=== PATIENT | female | born 1955 | race Caucasian/White ===

== ENCOUNTER 2017-02-09 11:54 | Emergency (ER) | payer MEDICAID ==
[~2017-02-09] VITALS: Ht 165.1 cm; Wt 81.2 kg
[~2017-02-09 11:54] MED LIST: ALPR0.5T; FLUO10CA66; GLIP-95; LEVO25TA59; LISI20TA; METF500T4; NAPR-260; SIMV40TA3; VICES
[2017-02-09 12:00] VITALS: Ht 165.1 cm; Wt 81.2 kg
[2017-02-09] MEDS ORDERED: METOCLOPRAMIDE 10 MG INJ IV STA (13:06)
[2017-02-09] MEDS ORDERED: KETOROLAC 30 MG INJ IV STA (13:06)
[2017-02-09] MEDS ORDERED: DIPHENHYDRAMINE 50 MG INJ IV STA (13:06)
[2017-02-09] MEDS ORDERED: SOD CHLORIDE 0.9% 1,000 ML IV STA (13:06)
[2017-02-09 14:38] LABS: ADD SCAN DIFF NO
[2017-02-09] MEDS ORDERED: HYDR-906 PO (14:43)
[2017-02-09 14:58] LABS: INR 0.95; PARTIAL THROMBOPLASTIN TIME 22.8 Sec (25.0-35.0); PROTIME 12.7 Sec (12.2-14.2)
[2017-02-09] MEDS ORDERED: HYDROCODONE/APAP (5/325) TAB PO ONE (15:00)
[2017-02-09 15:07] LABS: CALCIUM 9.8 mg/dl (8.4-10.2); CREATININE 0.74 mg/dl (0.44-1.00); POTASSIUM 3.5 mmol/L (3.5-5.1)
[2017-02-09 15:17] LABS: BASOPHIL # 0.1 10^3/ul (0.0-0.1); BASOPHILS % 1.2 % (0.0-2.0); EOSINOPHILS # 0.2 10^3/ul (0.0-0.5); EOSINOPHILS % 3.1 % (0.0-7.0); HEMATOCRIT 37.4 % (37.0-47.0); LYMPHOCYTES # 1.8 10^3/ul (0.8-2.9); LYMPHOCYTES % 23.4 % (15.0-51.0); MEAN CORPUSCULAR HEMOGLOBIN 29.2 pg (29.0-33.0); MEAN CORPUSCULAR HGB CONC 34.8 g/dl (32.0-37.0); MEAN PLATELET VOLUME 12.4 fl (7.4-10.4); MONOCYTE # 0.4 10^3/ul (0.3-0.9); MONOCYTES % 4.7 % (0.0-11.0); NEUTROPHIL # 5.2 10^3/ul (1.6-7.5); NEUTROPHILS % 67.1 % (39.0-77.0); PLATELET COUNT 159 10^3/UL (140-415); RED BLOOD COUNT 4.45 10^6/ul (4.20-5.40); RED CELL DISTRIBUTION WIDTH 13.1 % (11.5-14.5); WHITE BLOOD COUNT 7.7 10^3/ul (4.8-10.8)
--- NOTE | 2017-02-09 15:34 | ERD ---
ER Documentation Chief Complaint Date/Time DATE: 02/09/17 TIME: 15:30 Chief Complaint headache with nausea x 3 days h/o migraine HPI This is a 61-year-old female presents to the ER with a headache that is located all over her head over the last 3 days. Headache is throbbing in quality and is intermittent. Patient has not taken anything for the pain. Patient also admits to weakness. She admits to some nausea however denies vomiting. She also admits to diarrhea. Patient denies any head trauma. She does have a past medical history of migraine headaches. Patient denies any recent cough or cold symptoms. She denies any confusion or loss of consciousness. She denies any neck pain or neck stiffness. She denies any fevers or chills ROS 12 point review of systems was done, all negative except per HPI. Medications Home Meds Active Scripts Hydrocodone/Acetaminophen ([place] 5-325 Tablet) 1 Each Tablet, 1 TAB PO Q6H Y for PAIN, #10 TAB Prov:CHE GALVEZ 02/09/17 Reported Medications Alprazolam* (Xanax*) 0.5 Mg Tab 02/04/11 Naproxen* (Naprosyn*) 500 Mg Tablet 02/04/11 Acetaminophen/Hydrocodone (Vicodin Es) 1 Tab Tab 02/04/11 Fluoxetine Hcl* (Prozac*) 10 Mg Capsule 02/04/11 Levothyroxine Sodium* (Synthroid*) 25 Mcg Tablet 02/04/11 Simvastatin (Simvastatin) 40 Mg Tablet 02/04/11 Lisinopril* (Prinivil*) 20 Mg Tablet 02/04/11 Glipizide* (Glipizide*) 10 Mg Tablet 02/04/11 Metformin* (Glucophage*) 500 Mg Tab 02/04/11 Allergies Allergies: Coded Allergies: No Known Drug Allergies (Verified Allergy, Mild, 02/04/11) PMhx/Soc History of Surgery: Yes (HYSTERECTOMY,,GALLBLADDER) Anesthesia Reaction: No Hx Neurological Disorder: Yes (MIGRAINES) Hx Respiratory Disorders: No Hx Cardiac Disorders: Yes (HTN, HIGH CHOLESTEROL) Hx Psychiatric Problems: No Hx Miscellaneous Medical Probl: Yes (HYPOTHYROIDISM,DM) Hx Alcohol Use: No Hx Substance Use: No Hx Tobacco Use: No Smoking Status: Never smoker Physical Exam Vitals Physical Exam GENERAL: The patient is well developed and appropriate for usual state of health , in no apparent distress. HEENT: Atraumatic. Conjunctivae are pink. Pupils equal, round, and reactive to light. Extraocular muscles are grossly intact. Bilateral tympanic membranes are clear with no evidence of erythema, bulging or perforation. No sinus tenderness. NECK: C-spine is soft and supple. There is no cervical lymphadenopathy. CHEST: Clear to auscultation bilaterally. There are no rales, wheezes or rhonchi. HEART: Regular rate and rhythm. No murmurs, clicks, rubs or gallops. EXTREMITIES: Equal pulses bilaterally. There is no peripheral clubbing, cyanosis or edema. No focal swelling or erythema. Full range of motion. Grossly neurovascularly intact. NEURO: Alert and oriented. Cranial nerves II through XII are intact. Motor strength in all 4 extremities with 5/5 strength. Sensation grossly intact. Normal speech and gait. Negative Rhomberg. +2 DTRs. SKIN: There is no apparent rash or petechia. The skin is warm and dry. Results 24 hrs Laboratory Tests Test 02/09/17 14:30 White Blood Count 7.710^3/ul Red Blood Count 4.4510^6/ul Hemoglobin 13.0g/dl Hematocrit 37.4% Mean Corpuscular Volume 84.0fl Mean Corpuscular Hemoglobin 29.2pg Mean Corpuscular Hemoglobin Concent 34.8g/dl Red Cell Distribution Width 13.1% Platelet Count 96850^3/UL Mean Platelet Volume 12.4fl Neutrophils % 67.1% Lymphocytes % 23.4% Monocytes % 4.7% Eosinophils % 3.1% Basophils % 1.2% Nucleated Red Blood Cells % 0.0/100WBC Neutrophils # 5.210^3/ul Lymphocytes # 1.810^3/ul Monocytes # 0.410^3/ul Eosinophils # 0.210^3/ul Basophils # 0.110^3/ul Nucleated Red Blood Cells # 0.010^3/ul Prothrombin Time 12.7Sec Prothrombin Time Ratio 1.0 INR International Normalized Ratio 0.95 Activated Partial Thromboplast Time 22.8Sec Sodium Level 138mmol/L Potassium Level 3.5mmol/L Chloride Level 102mmol/L Carbon Dioxide Level 25mmol/L Anion Gap 15 Blood Urea Nitrogen 18mg/dl Creatinine 0.74mg/dl Glucose Level 205mg/dl Calcium Level 9.8mg/dl Current Medications Medications (Trade) Dose Ordered Sig/Avery Route PRN Reason Start Time Stop Time Status Last Admin Dose Admin Sodium Chloride (NS) 1,000 ml @ 1,000 mls/hr Q1H STAT IV 02/09/17 13:06 02/09/17 14:41 DC Metoclopramide HCl (Reglan) 10 mg ONCE STAT IV 02/09/17 13:06 02/09/17 14:41 DC Ketorolac Tromethamine (Toradol) 30 mg ONCE STAT IV 02/09/17 13:06 02/09/17 14:41 DC Diphenhydramine HCl (Benadryl) 25 mg ONCE STAT IV 02/09/17 13:06 02/09/17 14:41 DC Acetaminophen/ Hydrocodone Bitart ([place] (5/325)) 1 tab ONCE ONCE PO 02/09/17 15:00 02/09/17 15:01 DC 02/09/17 14:51 Procedures/MDM Differential Diagnosis includes but is not limited to; tension headache, migraine headache, cluster headache, sinus headache, nonspecific febrile headache, trigeminal neurologia, subdural hematoma, subarachnoid bleeding, meningitis, encephalitis. Patient is neurologically intact with no focal neurological deficits. Migraine cocktail, labs and CT scan was ordered for this patient however IV access was hard to establish. Patient became frustrated and stated she did not want any tests and just wanted pain medication. Patient stated that she can only take liquid medications or injections medications as she has an ulcer and feels that pills cause ulcers. I discussed the risks versus benefits of not obtaining tests, which include permanent disability and even . She understands this and still does not want test done. Patient was given a [place]. Patient will be discharged with [place]. Patient for intracranial bleed or intracranial emergency as well as patient's neurological exam is completely normal. Patient has not had a history of migraines and this is likely a migraine headache. Patient is to follow-up with her primary care doctor within 1-2 days return to ER sooner if symptoms worsen. My medical decision-making should with the patient understands and agrees with plan. Departure Diagnosis: Primary Impression: Headache Condition: Stable Patient Instructions: Self-Care for Headaches Additional Instructions: Call your primary care doctor TOMORROW for an appointment during the next 1-2 days.See the doctor sooner or return here if your condition worsens before your appointment time. CHE GALVEZ Feb 09, 2017 15:34 Headache Condition: Stable Patient Instructions: Self-Care for Headaches Additional Instructions: Call your primary care doctor TOMORROW for an appointment during the next 1-2 days.See the doctor sooner or return here if your condition worsens before your appointment time. CHE GALVEZ Feb 09, 2017 15:34
== END 2017-02-09 15:08 | disposition home or self-care (01) ==
LOC: FTE 11:54
DX: R51 Headache (principal); I10 Essential (primary) hypertension; E03.9 Hypothyroidism, unspecified; E11.9 Type 2 diabetes mellitus without complications; M79.602 Pain in left arm; Z79.84 Long term (current) use of oral hypoglycemic drugs
CPT/HCPCS: 80048; 85025; 85610; 85730; Z7610; 99283; J7030